=== PATIENT | female | born 1945 | race Caucasian/White ===

== ENCOUNTER → 2019-07-10 | Outpatient (CLI) | payer MEDICARE ==
[~2019-07-10] MED LIST: ALBU90OI INH; ASPI81CH PO; ASPI81EC PO; CALCAVITDA PO; CEFP200 PO; CIPR500 PO; FLUO10 PO; FLUO20 PO; HYDCHL25 PO; LEVSOD75 PO; LISI5 PO; LOSA50 PO; METF500C PO; NAPR500 PO; NYST100000 TOP; OLME20 PO; Prozac20 MG PO; QVAR7.3 G1; SIMV10 PO; SIMVASTATIN PO; Simvastatin20 MG PO; WARF5 PO; WARF7.5 PO; XARELTO15 MG PO; XARELTO20 MG PO
== END | disposition home or self-care (01) ==
LOC: LAB SHORT 19:17 → LAB 19:17
DX: R35.0 Frequency of micturition (principal)
CPT/HCPCS: 87077; 87086; 87186

== ENCOUNTER 2019-07-26 08:38 | Day surgery (SDC) | payer MEDICARE ==
[~2019-07-26] VITALS: Ht 154.9 cm; Wt 128.1 kg
[~2019-07-26 08:38] MED LIST changes: -CALCAVITDA PO; +CENTRUM SILVER1 EAC2 PO; +ERYT1OIN BOTHEYES; +METR59TL TOP; +OYSTER SHELL 51 EACH PO; +QVAR REDIHALE10.6 G1 INH; -QVAR7.3 G1
--- NOTE | 2019-07-26 09:21 | NUR ---
History, Chart, Medications and Allergies reviewed before start of procedure.Patient confirms NPO status and agrees with scheduled surgery. Patient States Post-Procedure ride home has been arranged.
--- NOTE | 2019-07-26 11:18 | NUR ---
07/26/19 1118 ARSEN FRANCOIS Patient to ENDO 1. 3-LEAD EKG REVIEWED WITH PHYSICIAN PRIOR TO START OF PROCEDURE. History, Chart, Medications and Allergies reviewed before start of procedure.MONITOR INTACT WITH CONTINUOUS PULSE OXIMETRY AND INTERMITTENT BP.O2 VIA N/C INTACT THROUGHOUT SEDATION/PROCEDURE.See Anesthesia record.
--- NOTE | 2019-07-26 12:24 | NUR ---
Discharge instructions reviewed with patient. Patient verbalizes understanding. Copy given to patient to take home. Discharged via wheelchair to private car for ride home. PT TOLERATED COFFEE, NO C/O PAIN.
== END 2019-07-26 12:20 | disposition home or self-care (01) ==
LOC: ORSCMMR 08:38 → ORD 10:15 → ORSCMMR 10:15
PROVIDERS: Surgery
PROC: 0DBK8ZX Excision of Ascending Colon, Via Natural or Artificial Opening Endoscopic, Diagnostic (ICD-10-PCS; principal; 2019-07-26 10:15)
PROC: 0DBL8ZX Excision of Transverse Colon, Via Natural or Artificial Opening Endoscopic, Diagnostic (ICD-10-PCS; principal; 2019-07-26 10:15)
PROC: 0DBN8ZX Excision of Sigmoid Colon, Via Natural or Artificial Opening Endoscopic, Diagnostic (ICD-10-PCS; principal; 2019-07-26 10:15)
DX: Z12.11 Encounter for screening for malignant neoplasm of colon (principal); D12.3 Benign neoplasm of transverse colon; D12.2 Benign neoplasm of ascending colon; D12.5 Benign neoplasm of sigmoid colon; I10 Essential (primary) hypertension; Z86.010 Personal history of colon polyps; Z80.0 Family history of malignant neoplasm of digestive organs; K57.30 Diverticulosis of large intestine without perforation or abscess without bleeding; E11.9 Type 2 diabetes mellitus without complications; F32.9 Major depressive disorder, single episode, unspecified; J44.9 Chronic obstructive pulmonary disease, unspecified; E66.8 Other obesity; Z68.43 Body mass index [BMI] 50.0-59.9, adult; Z79.01 Long term (current) use of anticoagulants; Z79.84 Long term (current) use of oral hypoglycemic drugs; Z79.899 Other long term (current) drug therapy; K64.4 Residual hemorrhoidal skin tags
CPT/HCPCS: 82947; 88305; J2704; J7120

== ENCOUNTER 2019-10-20 12:32 | Emergency (ER) | payer MEDICARE ==
[~2019-10-20] VITALS: Ht 157.5 cm; Wt 130.6 kg
[2019-10-20 13:15] LABS: BASOPHILS ABSOLUTE AUTO 0.04 K/mm3 (0.00-0.23); BASOPHILS PERCENT AUTO 0 % (0-2); EOSINOPHILS ABSOLUTE AUTO 0.01 K/mm3 (0.00-0.68); EOSINOPHILS PERCENT AUTO 0 % (0-6); Hematocrit 38.9 % (33.0-51.0); Hemoglobin 12.5 g/dL (11.5-16.0); IMMATURE GRAN ABSOLUTE AUTO 0.17 K/mm3 (0.00-0.10); IMMATURE GRAN PERCENT AUTO 1 % (0-1); LYMPHOCYTES ABSOLUTE AUTO 0.87 K/mm3 (0.84-5.20); LYMPHOCYTES PERCENT AUTO 4 % (21-46); MONOCYTES ABSOLUTE AUTO 1.41 K/mm3 (0.16-1.47); MONOCYTES PERCENT AUTO 7 % (4-13); Mean Corpuscular HGB 30.4 pg (26.0-34.0); Mean Corpuscular HGB Conc 32.1 g/dL (31.5-36.5); Mean Corpuscular Volume 95 fL (80-100); Mean Platelet Volume 11.2 fL (9.1-12.4); NEUTROPHILS ABSOLUTE AUTO 17.64 K/mm3 (1.96-9.15); NEUTROPHILS PERCENT AUTO 88 % (41-73); Platelet Count 168 K/mm3 (150-400); RDW Coefficient Variation 13.7 % (11.7-14.2); RDW Standard Deviation 47.4 fL (35.1-46.3); Red Blood Cell Count 4.11 M/mm3 (3.80-5.20); White Blood Cell Count 20.14 K/mm3 (4.00-11.30)
[2019-10-20 13:26] LABS: Albumin, Blood 2.8 g/dL (3.4-5.0); Albumin/Globulin Ratio 0.8 (0.8-1.8); Bilirubin, Total 1.4 mg/dL (0.1-1.0); Bun/Creatinine Ratio 17.6 (12.0-20.0); Calcium, Blood 9.4 mg/dL (8.5-10.1); Creatinine, Blood 1.88 mg/dL (0.40-1.00); Globulin, Blood 3.6 g/dL (2.2-4.0); Potassium, Blood 3.8 mmol/L (3.5-5.5); Total Protein, Blood 6.4 g/dL (6.4-8.2)
[2019-10-20 14:25] LABS: Influenza A Negative (NEGATIVE); Influenza B Negative (NEGATIVE)
[2019-10-20 14:36] LABS: Source, Urine Clean Catch
[2019-10-20 14:43] LABS: Appearance, Urine Cloudy (Clear); Blood, Urine 4+ (Neg); Color, Urine Amber (P-Yellow); Glucose Qualitative, Urine Neg (Neg); Ketones, Urine 1+ (Neg); Leukocyte Esterase, Urine 3+ (Neg); Nitrite, Urine Pos (Neg); Protein, Urine 3+ (Neg); Urobilinogen, Urine 3+ (Normal)
[2019-10-20] MEDS ORDERED: WARF5 PO (14:47)
[2019-10-20 14:54] LABS: Bilirubin, Urine 1+ (Neg)
[2019-10-20 14:58] LABS: Bacteria Many /hpf; Squamous Epithelial Cells Few /hpf (Few); White Blood Cells, Urine TNTC /hpf (0-5)
[2019-10-20 15:01] LABS: Amorphous Light (0-Heavy); Calcium Oxalate Crystals Rare /hpf
[2019-10-20 16:38] LABS: International Normalized Ratio 1.95; Prothrombin Time Results 20.1 Sec (9.7-11.5)
== END 2019-10-20 17:15 ==
LOC: ER 12:32
PROVIDERS: Emergency Medicine
DX: A41.9 Sepsis, unspecified organism (principal); R65.20 Severe sepsis without septic shock; N17.9 Acute kidney failure, unspecified; E11.9 Type 2 diabetes mellitus without complications; D68.9 Coagulation defect, unspecified; Z88.5 Allergy status to narcotic agent; Z79.899 Other long term (current) drug therapy; Z79.84 Long term (current) use of oral hypoglycemic drugs; Z79.01 Long term (current) use of anticoagulants; E03.9 Hypothyroidism, unspecified; I10 Essential (primary) hypertension; Z85.3 Personal history of malignant neoplasm of breast; J44.9 Chronic obstructive pulmonary disease, unspecified; E78.5 Hyperlipidemia, unspecified; F32.9 Major depressive disorder, single episode, unspecified; Z87.891 Personal history of nicotine dependence
CPT/HCPCS: 36415; 74022; 74176; 80053; 81001; 84484; 85025; 85610; 87077; 87086; 87186; 87804; 93005; 93010; 96361; 96365; 99285-25; J0696; J7030

== ENCOUNTER → 2020-01-13 | Outpatient (CLI) | payer MEDICARE ==
[2020-01-13 15:05] LABS: Free Thyroxine 1.18 ng/dL (0.70-1.60)
[2020-01-13 15:08] LABS: Thyroid Stimulating Hormone 5.42 uIU/mL (0.360-4.800)
== END | disposition home or self-care (01) ==
LOC: LAB 13:42 → LAB SHORT 13:42
PROVIDERS: Hospitalist
DX: E03.9 Hypothyroidism, unspecified (principal)
CPT/HCPCS: 84439; 84443

== ENCOUNTER → 2024-03-27 | Outpatient (CLI) | payer MEDICARE ==
[2024-03-27 14:22] LABS: International Normalized Ratio 2.06; Prothrombin Time Results 20.9 Sec (9.7-11.5)
[2024-03-27 14:42] LABS: BASOPHILS ABSOLUTE AUTO 0.06 K/mm3 (0.00-0.23); BASOPHILS PERCENT AUTO 1 % (0-2); EOSINOPHILS ABSOLUTE AUTO 0.16 K/mm3 (0.00-0.68); EOSINOPHILS PERCENT AUTO 3 % (0-6); Hematocrit 43.4 % (33.0-51.0); Hemoglobin 13.6 g/dL (11.5-16.0); IMMATURE GRAN ABSOLUTE AUTO 0.04 K/mm3 (0.00-0.10); IMMATURE GRAN PERCENT AUTO 1 % (0-1); LYMPHOCYTES ABSOLUTE AUTO 1.32 K/mm3 (0.84-5.20); LYMPHOCYTES PERCENT AUTO 22 % (21-46); MONOCYTES ABSOLUTE AUTO 0.56 K/mm3 (0.16-1.47); MONOCYTES PERCENT AUTO 9 % (4-13); Mean Corpuscular HGB 30.3 pg (26.0-34.0); Mean Corpuscular HGB Conc 31.3 g/dL (31.5-36.5); Mean Corpuscular Volume 97 fL (80-100); Mean Platelet Volume 12.6 fL (9.1-12.4); NEUTROPHILS ABSOLUTE AUTO 3.84 K/mm3 (1.96-9.15); NEUTROPHILS PERCENT AUTO 64 % (41-73); Platelet Count 244 K/mm3 (150-400); RDW Coefficient Variation 13.8 % (11.7-14.2); RDW Standard Deviation 49.4 fL (35.1-46.3); Red Blood Cell Count 4.49 M/mm3 (3.80-5.20); White Blood Cell Count 5.98 K/mm3 (4.00-11.30)
[2024-03-27 14:47] LABS: Alanine Aminotransfer (ALT/SGP 19 U/L (12-78); Albumin, Blood 3.6 g/dL (3.4-5.0); Albumin/Globulin Ratio 1.4 (0.8-1.8); Alk Phos 136 U/L (50-136); Anion Gap 6 mmol/L (3-11); Aspartate Aminotrans (AST/SGOT 13 U/L (12-37); Bilirubin, Total 0.5 mg/dL (0.1-1.0); Blood Urea Nitrogen 22 mg/dL (8-24); Bun/Creatinine Ratio 28.4 (12.0-20.0); CHOL/HDL RATIO 3.4; CO2, Blood 32 mmol/L (21-32); Calcium, Blood 9.6 mg/dL (8.5-10.1); Chloride, Blood 106 mmol/L (98-108); Cholesterol 170 mg/dL (50-200); Creatinine, Blood 0.78 mg/dL (0.40-1.00); Free Thyroxine 0.97 ng/dL (0.70-1.60); Globulin, Blood 2.6 g/dL (2.2-4.0); Glomerular Filtration Rate 77 (60-); Glucose, Blood 102 mg/dL (70-99); HDL Cholesterol 50 mg/dL (>39); LDL/HDL RATIO 1.7; Low Density Lipoprotein Chol 87 mg/dL (0-110); Sodium, Blood 140 mmol/L (136-145); Total Protein, Blood 6.2 g/dL (6.4-8.2); Triglycerides 166 mg/dL (30-160); Very Low Density Lipoprot Chol 33 mg/dL (6-32)
[2024-03-27 15:40] LABS: Creatinine, Urine Random 62.6 mg/dL (27.00-270.00); Microalb/Creat Ratio UR, Rand 10.32 mg/g (0.000-30.000); Microalbumin, Random Urine 6.46 mg/L (0.000-20.000)
== END | disposition home or self-care (01) ==
LOC: LAB SHORT 14:00 → LAB 14:00
PROVIDERS: Hospitalist
DX: E11.51 Type 2 diabetes mellitus with diabetic peripheral angiopathy without gangrene (principal); E03.9 Hypothyroidism, unspecified; E78.2 Mixed hyperlipidemia; I10 Essential (primary) hypertension; I26.99 Other pulmonary embolism without acute cor pulmonale
CPT/HCPCS: 80053; 80061; 82043; 82570; 83036; 84439; 84443; 85025; 85610

== ENCOUNTER → 2024-10-29 | Outpatient (CLI) | payer MEDICARE ==
[2024-10-29 19:19] LABS: International Normalized Ratio 2.58; Prothrombin Time Results 25.7 Sec (9.7-11.5)
== END | disposition home or self-care (01) ==
LOC: LAB SHORT 17:34 → LAB 17:34
PROVIDERS: Hospitalist
DX: Z51.81 Encounter for therapeutic drug level monitoring (principal); I26.99 Other pulmonary embolism without acute cor pulmonale
CPT/HCPCS: 85610

== ENCOUNTER 2025-01-30 09:56 | Emergency (ER) | payer MEDICARE ==
[~2025-01-30] VITALS: Ht 154.9 cm; Wt 127.5 kg
[2025-01-30] MEDS ORDERED: NS 1,000 ML IV SCH (10:30)
[2025-01-30 10:33] LABS: BASOPHILS ABSOLUTE AUTO 0.05 K/mm3 (0.00-0.23); BASOPHILS PERCENT AUTO 0 % (0-2); EOSINOPHILS ABSOLUTE AUTO 0.03 K/mm3 (0.00-0.68); EOSINOPHILS PERCENT AUTO 0 % (0-6); Hematocrit 39.5 % (33.0-51.0); Hemoglobin 12.6 g/dL (11.5-16.0); IMMATURE GRAN ABSOLUTE AUTO 0.11 K/mm3 (0.00-0.10); IMMATURE GRAN PERCENT AUTO 1 % (0-1); LYMPHOCYTES ABSOLUTE AUTO 0.44 K/mm3 (0.84-5.20); LYMPHOCYTES PERCENT AUTO 3 % (21-46); MONOCYTES ABSOLUTE AUTO 1.38 K/mm3 (0.16-1.47); MONOCYTES PERCENT AUTO 9 % (4-13); Mean Corpuscular HGB 30.2 pg (26.0-34.0); Mean Corpuscular HGB Conc 31.9 g/dL (31.5-36.5); Mean Corpuscular Volume 95 fL (80-100); NEUTROPHILS ABSOLUTE AUTO 13.72 K/mm3 (1.96-9.15); NEUTROPHILS PERCENT AUTO 87 % (41-73); Platelet Count 172 K/mm3 (150-400); RDW Coefficient Variation 14.5 % (11.7-14.2); RDW Standard Deviation 51.1 fL (35.1-46.3); Red Blood Cell Count 4.17 M/mm3 (3.80-5.20); White Blood Cell Count 15.73 K/mm3 (4.00-11.30)
[2025-01-30] MEDS ORDERED: Dextrose 50% 50 ML Syringe IV ONE (11:10)
[2025-01-30 11:26] LABS: Calcium, Ionized (POC) 1.23 mmol/L (1.10-1.46); Chloride (POC) 99 mmol/L (98-108); Creatinine (POC) 1.8 mg/dL (0.6-1.0); Glucose (ISTAT POC) 87 mg/dL (70-99); Hemoglobin (POC) 12.6 g/dL (12.0-16.0); Sodium (POC) 134 mmol/L (135-148); Total CO2 (POC) 29 mmol/L (21-32)
[2025-01-30 12:00] LABS: BASOPHILS ABSOLUTE AUTO 0.03 K/mm3 (0.00-0.23); BASOPHILS PERCENT AUTO 0 % (0-2); EOSINOPHILS ABSOLUTE AUTO 0.04 K/mm3 (0.00-0.68); EOSINOPHILS PERCENT AUTO 0 % (0-6); Hematocrit 37.1 % (33.0-51.0); Hemoglobin 11.9 g/dL (11.5-16.0); IMMATURE GRAN PERCENT AUTO 1 % (0-1); LYMPHOCYTES ABSOLUTE AUTO 0.49 K/mm3 (0.84-5.20); LYMPHOCYTES PERCENT AUTO 3 % (21-46); MONOCYTES ABSOLUTE AUTO 1.44 K/mm3 (0.16-1.47); MONOCYTES PERCENT AUTO 10 % (4-13); Mean Corpuscular HGB 30.4 pg (26.0-34.0); Mean Corpuscular HGB Conc 32.1 g/dL (31.5-36.5); Mean Corpuscular Volume 95 fL (80-100); Mean Platelet Volume 11.1 fL (9.1-12.4); NEUTROPHILS ABSOLUTE AUTO 12.49 K/mm3 (1.96-9.15); NEUTROPHILS PERCENT AUTO 86 % (41-73); Platelet Count 145 K/mm3 (150-400); RDW Coefficient Variation 14.4 % (11.7-14.2); RDW Standard Deviation 49.9 fL (35.1-46.3); Red Blood Cell Count 3.91 M/mm3 (3.80-5.20); White Blood Cell Count 14.59 K/mm3 (4.00-11.30)
[2025-01-30 12:00] LABS: Source, Urine Clean Catch
[2025-01-30 12:04] LABS: Appearance, Urine Clear (Clear); Bilirubin, Urine Neg (Neg); Blood, Urine 1+ (Neg); Color, Urine Yellow (P-Yellow); Glucose Qualitative, Urine Neg (Neg); Ketones, Urine Neg (Neg); Leukocyte Esterase, Urine Neg (Neg); Nitrite, Urine Neg (Neg); Protein, Urine 1+ (Neg); Urobilinogen, Urine 3+ (Normal)
[2025-01-30 12:09] LABS: Albumin, Blood 2.4 g/dL (3.4-5.0); Albumin/Globulin Ratio 0.7 (0.8-1.8); Bilirubin, Total 1.6 mg/dL (0.1-1.0); Bun/Creatinine Ratio 25.2 (12.0-20.0); Calcium, Blood 9.6 mg/dL (8.5-10.1); Creatinine, Blood 1.55 mg/dL (0.40-1.00); Globulin, Blood 3.3 g/dL (2.2-4.0); Total Protein, Blood 5.7 g/dL (6.4-8.2)
[2025-01-30] MEDS ORDERED: FAMO20 PO (12:12)
[2025-01-30 12:18] LABS: Bacteria Not Seen /hpf; Squamous Epithelial Cells Few /hpf (Few); White Blood Cells, Urine 0-2 /hpf (0-5)
[2025-01-30 12:31] LABS: Anion Gap Unable to Calculate mmol/L (3-11)
[2025-01-30] MEDS ORDERED: Percocet 5-3251 EACH PO (14:55)
[2025-01-30 15:00] VITALS: BP 127/89
== END 2025-01-30 15:09 | disposition home or self-care (01) ==
LOC: ER 09:56
PROVIDERS: Physician Assistant
DX: N13.2 Hydronephrosis with renal and ureteral calculous obstruction (principal); E03.9 Hypothyroidism, unspecified; E10.9 Type 1 diabetes mellitus without complications; E78.5 Hyperlipidemia, unspecified; I10 Essential (primary) hypertension; J44.9 Chronic obstructive pulmonary disease, unspecified; Z87.891 Personal history of nicotine dependence; Z79.01 Long term (current) use of anticoagulants; Z79.84 Long term (current) use of oral hypoglycemic drugs; Z79.899 Other long term (current) drug therapy
CPT/HCPCS: 51798; 74177; 80047; 80053; 81001; 82947; 85014; 85025; 93005; 93010; 96360-59; 99284-25; J7030; P9612; Q9967

== ENCOUNTER 2025-02-05 13:11 | Emergency (ER) | payer MEDICARE ==
[~2025-02-05] VITALS: Ht 157.5 cm; Wt 98.9 kg
[~2025-02-05 13:11] MED LIST changes: +FAMO20 PO; +Percocet 5-3251 EACH PO
[2025-02-05] MEDS ORDERED: CefTRIAXone Sodium 2,000 MG in NS 100 ML IV ONE (13:20)
[2025-02-05] MEDS ORDERED: Lactated Ringer's 1,000 ML IV SCH (13:20)
[2025-02-05 13:46] LABS: Hematocrit 36.1 % (33.0-51.0); Hemoglobin 11.3 g/dL (11.5-16.0); Mean Corpuscular HGB 30.1 pg (26.0-34.0); Mean Corpuscular HGB Conc 31.3 g/dL (31.5-36.5); Mean Corpuscular Volume 96 fL (80-100); Mean Platelet Volume 10.1 fL (9.1-12.4); NRBC ABSOLUTE 0.03 K/mm3 (0.00-0.02); NRBC Auto 0.1 /100 WBC (0.0-0.2); Platelet Count 349 K/mm3 (150-400); RDW Coefficient Variation 15.9 % (11.7-14.2); RDW Standard Deviation 56.3 fL (35.1-46.3); Red Blood Cell Count 3.76 M/mm3 (3.80-5.20); White Blood Cell Count 34.35 K/mm3 (4.00-11.30)
[2025-02-05 14:05] LABS: Source, Urine Foley catheter
[2025-02-05] MEDS ORDERED: Lactated Ringer's 2,000 ML IV SCH (14:05)
[2025-02-05 14:09] LABS: Appearance, Urine Turbid (Clear); Blood, Urine 1+ (Neg); Color, Urine Amber (P-Yellow); Glucose Qualitative, Urine Neg (Neg); Ketones, Urine Neg (Neg); Leukocyte Esterase, Urine 2+ (Neg); Nitrite, Urine Neg (Neg); Protein, Urine 3+ (Neg); Urobilinogen, Urine 3+ (Normal)
[2025-02-05] MEDS ORDERED: Lactated Ringer's 2,000 ML IV ONE (14:15)
[2025-02-05 14:16] LABS: Bilirubin, Urine 1+ (Neg)
[2025-02-05 14:17] LABS: Bacteria Few /hpf; Squamous Epithelial Cells Few /hpf (Few)
[2025-02-05 14:18] LABS: Amorphous Heavy (0-Heavy); Renal Epithelial Rare /hpf (0-Rare)
[2025-02-05 14:20] LABS: Albumin/Globulin Ratio 0.5 (0.8-1.8); Bilirubin, Direct 1.6 mg/dL (0.0-0.3); Bilirubin, Indirect 0.6 mg/dL (0.1-0.7); Bilirubin, Total 2.2 mg/dL (0.1-1.0); Bun/Creatinine Ratio 19.8 (12.0-20.0); Calcium, Blood 9.8 mg/dL (8.5-10.1); Creatinine, Blood 2.17 mg/dL (0.40-1.00); Globulin, Blood 3.9 g/dL (2.2-4.0); Magnesium, Blood 1.5 mg/dL (1.6-2.4); Phosphorus, Blood 1.8 mg/dL (2.5-4.9); Total Protein, Blood 5.9 g/dL (6.4-8.2)
[2025-02-05] MEDS ORDERED: Acetaminophen 500 MG Tab PO ONE (14:35)
[2025-02-05 14:47] LABS: BAND PERCENT MAN 17 % (0-8); BASOPHILS PERCENT MAN 0 % (0-2); EOSINOPHILS PERCENT MAN 0 % (0-6); LYMPHOCYTES ABSOLUTE MAN 0.68 K/mm3 (0.84-5.20); LYMPHOCYTES PERCENT MAN 2 % (21-46); METAMYELOCYTE ABSOLUTE MAN 1.71 K/mm3 (0.00-0.00); METAMYELOCYTE PERCENT MAN 5 % (0-0); MONOCYTES ABSOLUTE MAN 1.37 K/mm3 (0.16-1.47); MONOCYTES PERCENT MAN 4 % (4-13); MYELOCYTE ABSOLUTE MAN 0.68 K/mm3 (0.00-0.00); MYELOCYTE PERCENT MAN 2 % (0-0); NEUTROPHILS ABSOLUTE MAN 29.88 K/mm3 (1.96-9.15); SEG NEUTROPHILS PERCENT MAN 70 % (41-73); TOTAL CELLS COUNTED 100
[2025-02-05 15:09] LABS: CORONAVIRUS COVID-19 AG Negative (NEGATIVE)
[2025-02-05] MEDS ORDERED: JANTOVEN5 M2 PO (15:51)
[2025-02-05] MEDS ORDERED: SYNTHROID175 MC1 PO (15:51)
[2025-02-05] MEDS ORDERED: LOSA50 (15:52)
[2025-02-05] MEDS ORDERED: PROZAC2010 PO (15:53)
[2025-02-05 16:16] LABS: Prothrombin Time Results >90.0 Sec (9.7-11.5)
[2025-02-05 16:17] LABS: International Normalized Ratio >10.00
[2025-02-05] MEDS ORDERED: NS 1,000 ML IV SCH (17:55)
[2025-02-05 19:15] VITALS: BP 106/57
== END 2025-02-05 19:51 | disposition short-term general hospital (02) ==
LOC: ER 13:11
PROVIDERS: Emergency Medicine
DX: A41.9 Sepsis, unspecified organism (principal); N13.6 Pyonephrosis; E03.9 Hypothyroidism, unspecified; E10.9 Type 1 diabetes mellitus without complications; I10 Essential (primary) hypertension; J44.9 Chronic obstructive pulmonary disease, unspecified; E78.5 Hyperlipidemia, unspecified; Z86.718 Personal history of other venous thrombosis and embolism; Z86.711 Personal history of pulmonary embolism; Z87.891 Personal history of nicotine dependence; Z88.5 Allergy status to narcotic agent; Z79.01 Long term (current) use of anticoagulants; Z79.84 Long term (current) use of oral hypoglycemic drugs; Z79.890 Hormone replacement therapy; Z79.899 Other long term (current) drug therapy
CPT/HCPCS: 36415; 51702; 71045; 74177; 80053; 81001; 82248; 83605; 83735; 84100; 85025; 85610; 85730; 87040; 87077; 87086; 87186; 87426-QW; 93005; 93010; 96365-59; 96366-59; 96367-59; 99285-25; A9270; J0696; J7030; J7060; J7120; Q9967

== ENCOUNTER → 2025-06-16 | Outpatient (CLI) | payer MEDICARE ==
[~2025-06-16] MED LIST changes: +JANTOVEN5 M2 PO; +LOSA50; +PROZAC2010 PO; +SYNTHROID175 MC1 PO
[2025-06-16 15:25] LABS: Prothrombin Time Results 24.3 Sec (9.7-11.5)
== END ==
LOC: LAB SHORT 14:15 → LAB 14:15
PROVIDERS: Hospitalist
DX: Z51.81 Encounter for therapeutic drug level monitoring (principal); I26.99 Other pulmonary embolism without acute cor pulmonale
CPT/HCPCS: 85610

== ENCOUNTER → 2025-06-23 | Outpatient (CLI) | payer MEDICARE ==
[2025-06-23 15:51] LABS: Alanine Aminotransfer (ALT/SGP 27.0 U/L (12-78); Albumin, Blood 3.4 g/dL (3.4-5.0); Albumin/Globulin Ratio 1.0 (0.8-1.8); Anion Gap 8.0 mmol/L (6-16); Aspartate Aminotrans (AST/SGOT 17.0 U/L (12-37); Bilirubin, Total 0.3 mg/dL (0.1-1.0); Blood Urea Nitrogen 18.0 mg/dL (8-24); CO2, Blood 36.0 mmol/L (21-32); Calcium, Blood 10.9 mg/dL (8.5-10.1); Chloride, Blood 103.0 mmol/L (98-108); Creatinine, Blood 0.85 mg/dL (0.40-1.00); Globulin, Blood 3.4 g/dL (2.2-4.0); Glucose, Blood 74.0 mg/dL (70-99); Magnesium, Blood 2.0 mg/dL (1.6-2.4); Potassium, Blood 4.2 mmol/L (3.5-5.5); Sodium, Blood 143.0 mmol/L (136-145); Thyroid Stimulating Hormone 6.547 uIU/mL (0.360-4.800); Total Protein, Blood 6.8 g/dL (6.4-8.2)
== END ==
LOC: LAB 13:44 → LAB SHORT 13:44
PROVIDERS: Internal Medicine Cardiovascular Disease
DX: I27.20 Pulmonary hypertension, unspecified (principal); R06.02 Shortness of breath
CPT/HCPCS: 36415; 80053; 83735; 83880; 84443